=== PATIENT | male | born 1945 | race Caucasian/White ===

== ENCOUNTER → 2021-03-10 | Outpatient (CLI) | payer BC, MEDICARE ==
[~2021-03-10] MED LIST: CHOL500051 PO; ENDOCORT PO; FLUT1DIS3 INH; GLUC1CAP40 PO; LEVE500T53 PO; LEVE750T37 PO; MILK150C2 PO; MONT4TAB5 PO; MULT-717 PO; SIMV40TA PO; ZINC50CA PO; [UNRECOGNIZED DRUG - OTHER] PO
== END | disposition home or self-care (01) ==
LOC: STAR 08:34
PROVIDERS: ATTEND Orthopaedic Surgery
DX: Z01.818 Encounter for other preprocedural examination (principal); S46.011A Strain of muscle(s) and tendon(s) of the rotator cuff of right shoulder, initial encounter; M25.511 Pain in right shoulder; M75.21 Bicipital tendinitis, right shoulder; I25.2 Old myocardial infarction; X58.XXXA Exposure to other specified factors, initial encounter; Y93.89 Activity, other specified; Y92.89 Other specified places as the place of occurrence of the external cause; Y99.8 Other external cause status; Z20.822 Contact with and (suspected) exposure to COVID-19
CPT/HCPCS: 93005; U0003; U0005

== ENCOUNTER 2021-03-16 07:07 | Day surgery (SDC) | payer BC, MEDICARE ==
[2021-03-10 09:14] VITALS: BP 111/70
[~2021-03-16] VITALS: Ht 188 cm; Wt 116.9 kg
[~2021-03-16 07:07] MED LIST changes: +BUPIVACAINE/PF 0.25% ONE; +EPINEPHRINE 1 MG/ML, 1ML ONE
[2021-03-16 07:31] VITALS: BP 111/70
[2021-03-16] MEDS ORDERED: CHLORHEXIDINE 15 ML UDC ONE (07:36)
[2021-03-16] MEDS ORDERED: CHLORHEXIDINE 15 ML UDC PO ONE (08:00)
[2021-03-16] MEDS ORDERED: LACTATED RINGERS 1,000 ML IV SCH (08:00)
[2021-03-16] MEDS ORDERED: FENTANYL PF 100 MCG/2ML ONE (08:10)
[2021-03-16] MEDS ORDERED: CEFAZOLIN 1,000 MG ONE (09:52)
[2021-03-16] MEDS ORDERED: DEXAMETHASONE 4 MG/ML, 1ML ONE (09:52)
[2021-03-16] MEDS ORDERED: ONDANSETRON 2MG/ML, 2ML ONE (09:52)
[2021-03-16] MEDS ORDERED: PROPOFOL 10 MG/ML, 20ML ONE (09:52)
[2021-03-16] MEDS ORDERED: GLYCOPYRROLATE 0.2MG/1ML, 5ML ONE (09:52)
[2021-03-16] MEDS ORDERED: ROCURONIUM 10MG/ML,5ML ONE (09:52)
[2021-03-16] MEDS ORDERED: SUCCINYLCHOLINE 20 MG/ML, 10ML ONE (09:52)
[2021-03-16] MEDS ORDERED: NEOSTIGMINE 1 MG/ML, 10ML ONE (09:52)
[2021-03-16] MEDS ORDERED: hydrALAzine 20 MG/ML, 1ML IV PRN (11:00)
[2021-03-16] MEDS ORDERED: MEPERIDINE/PF 25MG/0.5ML IVPush PRN (11:00)
[2021-03-16] MEDS ORDERED: ALBUTEROL SULFATE 2.5 MG/3 ML NPPB PRN (11:00)
[2021-03-16] MEDS ORDERED: KETOROLAC 30 MG/1 ML IV PRN (11:00)
[2021-03-16] MEDS ORDERED: HYDROmorphone 2 MG/ML, 1ML IVPush PRN (11:00)
[2021-03-16] MEDS ORDERED: LABETALOL 5MG/ML, 20ML IV PRN (11:00)
[2021-03-16] MEDS ORDERED: OXYcodone 5 MG/5 ML ORAL.SOL UDC PO PRN (11:00)
[2021-03-16] MEDS ORDERED: FENTANYL PF 100 MCG/2ML IV PRN (11:00)
[2021-03-16] MEDS ORDERED: ACETAMINOPHEN 325 MG TABLET PO PRN (11:00)
[2021-03-16] MEDS ORDERED: PROMETHAZINE 25 MG/ML, 1ML IV PRN (11:00)
[2021-03-16] MEDS ORDERED: DIAZEPAM 5 MG/ML, 2ML IVPush PRN (11:00)
== END 2021-03-16 12:45 | disposition home or self-care (01) ==
LOC: OUT 07:07
PROVIDERS: ATTEND Orthopaedic Surgery
DX: S46.011A Strain of muscle(s) and tendon(s) of the rotator cuff of right shoulder, initial encounter (principal); S43.431A Superior glenoid labrum lesion of right shoulder, initial encounter; S46.111A Strain of muscle, fascia and tendon of long head of biceps, right arm, initial encounter; M94.211 Chondromalacia, right shoulder; M19.011 Primary osteoarthritis, right shoulder; I10 Essential (primary) hypertension; G40.909 Epilepsy, unspecified, not intractable, without status epilepticus; J44.9 Chronic obstructive pulmonary disease, unspecified; Z79.899 Other long term (current) drug therapy; Z88.8 Allergy status to other drugs, medicaments and biological substances; Z98.890 Other specified postprocedural states; Z82.61 Family history of arthritis; Z82.3 Family history of stroke; Z82.49 Family history of ischemic heart disease and other diseases of the circulatory system; X58.XXXA Exposure to other specified factors, initial encounter; Y93.89 Activity, other specified; Y92.89 Other specified places as the place of occurrence of the external cause; Y99.8 Other external cause status
CPT/HCPCS: 29823; 29826; 29827; 29828; 64415; C1713; J0171; J0330; J0690; J1100; J2405; J2704; J2710; J3010; J7120